=== PATIENT | male | born 1990 | race American Indian/Alaskan Native ===

== ENCOUNTER 2020-07-26 19:03 | Emergency (ER) | payer SELFPAY ==
[2020-07-26] MEDS ORDERED: IBUPROFEN 600 MG TAB PO ONE (19:59)
--- NOTE | 2020-07-26 20:12 | XRay Report ---
XR chest routine 2V INDICATION / CLINICAL INFORMATION: SOB, cough, fever COMPARISON: None available. FINDINGS: SUPPORT DEVICES: None. HEART / MEDIASTINUM: No significant abnormality. LUNGS / PLEURA: Volume loss with right lower lung zone linear opacity. Costophrenic sulci are sharp. No pneumothorax. ADDITIONAL FINDINGS: No significant additional findings. IMPRESSION: 1. Atelectasis and/or scarring seen within the right middle lobe. No acute airspace disease is identi fied. Signer Name: Damir Michaud MD Signed: 07/26/2020 8:08 PM Workstation Name: [id number]
[2020-07-26 20:36] VITALS: BP 104/66
== END 2020-07-26 21:00 | disposition left against medical advice (07) ==
LOC: ED 19:03
DX: R05 Cough (principal); Z53.21 Procedure and treatment not carried out due to patient leaving prior to being seen by health care provider
CPT/HCPCS: 71046

== ENCOUNTER 2021-04-01 13:49 | Emergency (ER) | payer SELFPAY ==
--- NOTE | 2021-04-01 14:51 | Event Note ---
ED Screening Note Date of service: 04/01/21 Time: 14:49 ED Screening Note: 30-year-old male patient with history of HIV presents to the emergency department with complaints of progressively worsening left testicular pain/swelling for 3 days. 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 Unsure of last CD4 count. Patient states he has not been on antiretroviral therapy in several months. He has not been sexually active in approximately 8 months. General: Awake, appropriately interactive, no acute distress. Neck: Supple. Full range of motion intact. Cardiovascular: Normal peripheral perfusion. Pulmonary: No respiratory distress. Patient is speaking normally without use of accessory muscles. Skin: No apparent rashes or lesions. Neurological: No facial asymmetry. Speech is clear. Follows commands. Patient is alert and oriented. Musculoskeletal: Moves all four extremities spontaneously with normal range of motion. Psych: Cooperative. Appropriate mood and affect. Labs, urinalysis, and testicular ultrasound ordered. Decision to pursue further diagnostic work-up deferred to additional ED providers following full history and complete physical assessment. I have greeted and performed a focused rapid initial assessment of this patient. A comprehensive ED assessment and evaluation of the patient, analysis of all test results, and completion of the medical decision-making process will be conducted by additional ED providers. This initial assessment/diagnostic orders/clinical plan/treatment(s) is/are subject to change based on patients health status, clinical progression and re-assessment. Further treatment and workup at subsequent clinical provider's discretion. Patient/guardian urged not to elope from the ED as their condition may be serious if not clinically assessed and managed.
[2021-04-01 15:41] LABS: Bilirubin,Urine NEG (Negative); Blood,Urine NEG (Negative); Color,Urine Straw (Yellow); Protein,Urine <15 mg/dL mg/dL (Negative); Urobilinogen,Urine < 2.0 mg/dL (<2.0)
[2021-04-01 16:14] LABS: Basophils % (Auto) 0.3 % (0.0-1.8); Eosinophils % (Auto) 0.6 % (0.0-4.3); Hematocrit 45.6 % (35.5-45.6); Hemoglobin 14.7 gm/dl (11.8-15.2); Lymphocytes # (Auto) 1.4 K/mm3 (1.2-5.4); Mean Corpuscular HGB Conc 32 % (32-34); Mean Corpuscular Volume 87 fl (84-94); Monocytes # (Auto) 0.4 K/mm3 (0.0-0.8); Monocytes % (Auto) 9.4 % (0.0-7.3); Platelet Count 170 K/mm3 (140-440); Red Blood Count 5.25 M/mm3 (3.65-5.03); Red Cell Distribution Width 13.5 % (13.2-15.2)
[2021-04-01 16:33] LABS: Alanine Aminotransferase 14 units/L (7-56); Albumin 3.7 g/dL (3.9-5); BUN/Creatinine Ratio 6; Blood Urea Nitrogen 6 mg/dL (9-20); Calcium 8.9 mg/dL (8.4-10.2); Hemolysis Index 7
--- NOTE | 2021-04-01 17:16 | Emergency Department Report ---
<PATRICK SIEGEL - Last Filed: 04/01/21 19:04> ED Male HPI - General Chief complaint: Urogenital-Male Stated complaint: GROIN PAIN Time Seen by Provider: 04/01/21 17:01 Source: patient Mode of arrival: Ambulatory Limitations: No Limitations - History of Present Illness Initial comments: 30 yr old male with past medical hx HIV but not compliant with antiretrovirals since January 2020 presents to the ER today with complaints of left groin and left testicular pain. 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 He states that he danced all night Tuesday but then when he woke up on Tuesday he started to have mild pain in his left groin. He states he assumed that he may have had pulled something or pinches testicles while dancing on the pole but otherwise that he does not recall any specific injury that happened while she was working Tuesday or dancing on a pole Tuesday. He states that on Tuesday he took a BC powder and the pain had resolved. He states that on Tuesday when he woke up, he noticed the pain had flared up again and this time noticed swelling into his left testicle and then today when he woke up and stretched pain was more significant and radiated down into his left knee with the same swelling into his left testicle. He denies any apparent bruising or erythema to the groin or the testicle. He denies any associated dysuria, hematuria, urinary frequency, or penile discharge. He denies any associate abdominal pain. He denies any bowel changes, nausea vomiting, fever or chills. Patient states that he is unsure of his last CD4 count. He states that he has not been sexually active in about 8 months. Complaint: testicle pain, testicle swelling, groin pain -: Gradual (2 days ago ) Location: left testicle, left inguinal region - Related Data Home Medications Medication Instructions Recorded Confirmed Last Taken No Known Home Medications [No 04/01/21 04/01/21 Unknown Reported Home Medications] Allergies Allergy/AdvReac Type Severity Reaction Status Date / Time acetaminophen Allergy Hives Verified 07/26/20 19:25 [From Darvocet-N 100] propoxyphene Allergy Hives Verified 07/26/20 19:25 [From Darvocet-N 100] tramadol [From Ultram] Allergy Hives Verified 07/26/20 19:25 ED Review of Systems Comment: All other systems reviewed and negative Constitutional: denies: chills, fever Eyes: denies: eye pain, eye discharge, vision change ENT: denies: ear pain, throat pain, dental pain, hearing loss, epistaxis, conges tion Respiratory: denies: cough, orthopnea, shortness of breath, SOB with exertion, SOB at rest, wheezing Cardiovascular: denies: chest pain, palpitations Gastrointestinal: denies: abdominal pain, nausea, vomiting, diarrhea, constipation, hematemesis, hematochezia Genitourinary: testicular pain, other (Left testicular swelling, left groin pain). denies: urgency, dysuria, frequency, hematuria, discharge Musculoskeletal: arthralgia Skin: denies: rash, lesions, change in color, change in hair/nails, pruritus Neurological: denies: headache, weakness, numbness, paresthesias, confusion, abnormal gait, vertigo ED Past Medical Hx - Past Medical History Previous Medical History?: Yes Hx HIV: Yes - Medications Home Medications: Home Medications Medication Instructions Recorded Confirmed Last Taken Type No Known Home Medications [No 04/01/21 04/01/21 Unknown History Reported Home Medications] ED Physical Exam - General Limitations: No Limitations General appearance: alert, in no apparent distress - Head Head exam: Present: atraumatic, normocephalic - Eye Eye exam: Present: normal appearance, PERRL, EOMI Pupils: Present: normal accommodation - Neck Neck exam: Present: normal inspection, full ROM - Respiratory Respiratory exam: Absent: respiratory distress - Cardiovascular Cardiovascular Exam: Present: regular rate - GI/Abdominal GI/Abdominal exam: Present: soft. Absent: distended, guarding, rebound - exam: Present: testicular tenderness (Moderate left testicular tenderness), other (No inguinal hernias noted). Absent: urethral discharge, scrotal swelling, vertical testicular lie, circumcision External exam: Present: normal external exam, swelling (Left testicular swelling). Absent: lesions, lacerations, ecchymosis, bleeding - Expanded Exam Expanded exam: Testicular Tenderness: Left, Testicular Swelling: Left, Cremasteric Reflex Present: Left - Extremities Exam Extremities exam: Present: normal inspection, full ROM. Absent: joint swelling - Expanded Lower Extremity Exam Left Hip exam: Present: normal inspection, full ROM, tenderness (Tenderness palpation to left groin area). Absent: swelling, abrasion, laceration, ecchymosis, deformity, crepidus, dislocation, erythema, external rotation, internal rotation, shortening, pelvic stability Gait: Positive: observed and normal - Neurological Exam Neurological exam: Present: alert, oriented X3, CN II-XII intact, normal gait - Psychiatric Psychiatric exam: Present: normal affect, normal mood - Skin Skin exam: Present: intact ED Medical Decision Making - Lab Data Result diagrams: 04/01/21 15:50 04/01/21 15:50 - Medical Decision Making 1630: Patient nowadays states that he is ready to leave and that he has been here since 1:00 I reviewed patient arrival, he arrived around 1349, just a little over 2 hours prior to my shift and me seeing him. I did review lab results with patient and I also explained to patient reason for getting the testicular ultrasound to rule out testicular torsion or any other acute abnormalities. I did call the software support technician before patient was deciding to leave to find out the status of his ultrasound. She states that before patient was placed in the room, he was in the waiting room and when they went to call out to him to the good ultrasound he did not respond and so they took the next patient. She states that she currently has a patient she will come get Mr. Meadows next. When patient started complaining that he was ready to leave, call software support technician again and she states that he will be about 20 minutes before he can come get him. I again informed Mr. Meadows why we need to get an ultrasound, reviewed the risk of not doing ultrasound but he states that he has been here since 1 and does not want to wait any longer and that he will come back in the morning. Informed him that he will have to sign out AGAINST MEDICAL ADVICE which he agreed to and has signed. See form in chart. [Azalia Brian] Has decided to leave our facility AGAINST MEDICAL ADVICE. I have assessed the patient's ability to make informed decision and it is my opinion at this time that the patient has the medical decision capacity to comprehend information regarding current medical condition and appreciates the impact of the disease or condition and the consequences of various options for treatment including foregoing treatment. The patient possesses the ability to evaluate all treatment options, compared to risk and benefits of each option, communicate choice in a consistent manner over time and is able to make rational choices. I have explained to the patient further testing, treatment and evaluation I would like to perform during the current emergency department visit as well as any possible alternatives that could be accomplished in a timely manner. I have outlined the possible risk of foregoing any or all of these interventions and the patient understands and acknowledges that the decision to leave may result in undesirable consequences such as , permanent disability and/or loss of current lifestyle. Even though leaving AMA is not ideal, I have instructed the patient to follow any discharge instructions given take any medications prescribed and resume care as soon as possible with another provider. Additionally, we clearly stated that the patient is welcome to return at any time to continue at our facility. ED Disposition Clinical Impression: Left groin pain, Testicular swelling, left Disposition: - LEFT AGAINST MED ADVICE Is pt being admited?: No Condition: Undetermined Referrals: PRIMARY CARE, [Primary Care Provider] - 3-5 Days Forms: AMA Form <DASIA FELIX - Last Filed: 04/01/21 23:09> ED Review of Systems ROS: Stated complaint: GROIN PAIN Other details as noted in HPI ED Course Vital Signs 04/01/21 04/01/21 14:20 17:31 Temperature 98.3 F 98.4 F Pulse Rate 72 72 Respiratory 16 16 Rate Blood Pressure 132/72 130/70 [Right] O2 Sat by Pulse 98 99 Oximetry ED Medical Decision Making - Lab Data Result diagrams: 04/01/21 15:50 04/01/21 15:50 Critical care attestation.: If time is entered above; I have spent that time in minutes in the direct care of this critically ill patient, excluding procedure time. ED Disposition Is pt being admited?: No Does the pt Need Aspirin: No
[2021-04-01] MEDS ORDERED: IBUPROFEN 600 MG TAB PO ONE (17:17)
[2021-04-01 17:32] VITALS: BP 130/70
== END 2021-04-01 18:58 | disposition left against medical advice (07) ==
LOC: ED 13:49
DX: N50.89 Other specified disorders of the male genital organs (principal); N50.812 Left testicular pain; R10.32 Left lower quadrant pain; Z79.899 Other long term (current) drug therapy
CPT/HCPCS: 36415; 80053; 81001; 85025; 99283

== ENCOUNTER 2021-07-13 14:48 | Emergency (ER) | payer SELFPAY ==
--- NOTE | 2021-07-13 19:27 | Vascular Lab Report ---
DUPLEX DOPPLER LOWER EXTREMITY VEINS, LEFT INDICATION: left calf pain. TECHNIQUE: Duplex doppler imaging was performed through the veins of the left lower extremity using venous compr ession and other maneuvers. COMPARISON: None available. FINDINGS: Common femoral vein: Negative. Superficial femoral vein: Negative. Popliteal vein: Negative. Calf veins: Negative. Additional findings: None. IMPRESSION: Negative for DVT. Signer Name: Kan Segal MD Signed: 07/13/2021 7:23 PM Workstation Name: [id number]
--- NOTE | 2021-07-13 20:12 | Emergency Department Report ---
ED Extremity Problem HPI - General Chief complaint: Extremity Injury, Lower Stated complaint: LT LEG/FOOT PAIN Time Seen by Provider: 07/13/21 18:17 Source: patient Mode of arrival: Ambulatory Limitations: No Limitations - History of Present Illness Initial comments: pt is a 30-year-old male presents emergency room complaints of left leg pain that began yesterday. He states that felt like a charley horse or like his leg locked off. He has pain from his calf down to his foot. He states at first he felt like his foot was slightly colder. He states he gets occasional tingling in the leg. He denies any fall or injury. He denies any leg swelling or skin changes. Past medical history of HIV and states he has been off his medicines for 9 months and is looking to get back on his medications. Allergy to acetaminophen, propoxyphene, tramadol - Related Data Previous Rx's Medication Instructions Recorded Last Taken Type Naproxen 375 mg PO BID PRN #14 tablet 07/13/21 Unknown Rx methOCARBAMOL [Robaxin TAB] 500 mg PO BID PRN #14 tab 07/13/21 Unknown Rx Allergies Allergy/AdvReac Type Severity Reaction Status Date / Time acetaminophen Allergy Hives Verified 07/26/20 19:25 [From Darvocet-N 100] propoxyphene Allergy Hives Verified 07/26/20 19:25 [From Darvocet-N 100] tramadol [From Ultram] Allergy Hives Verified 07/26/20 19:25 ED Review of Systems ROS: Stated complaint: LT LEG/FOOT PAIN Other details as noted in HPI Comment: All other systems reviewed and negative ED Past Medical Hx - Past Medical History Hx HIV: Yes - Surgical History Past Surgical History?: No - Social History Smoking Status: Current Every Day Smoker Substance Use Type: Marijuana - Medications Home Medications: Home Medications Medication Instructions Recorded Confirmed Last Taken Type Naproxen 375 mg PO BID PRN #14 tablet 07/13/21 Unknown Rx methOCARBAMOL [Robaxin TAB] 500 mg PO BID PRN #14 tab 07/13/21 Unknown Rx ED Physical Exam - General Limitations: No Limitations General appearance: alert, in no apparent distress - Head Head exam: Present: atraumatic, normocephalic - Eye Eye exam: Present: normal appearance - ENT ENT exam: Present: mucous membranes moist - Extremities Exam Extremities exam: Present: other (ttp to the left calf, no edema to the LLE, no bony ttp of the LLE, FROM of the LLE, neurovascularly intact, skin is warm, dry, intact) - Neurological Exam Neurological exam: Present: alert, oriented X3 - Psychiatric Psychiatric exam: Present: normal affect, normal mood - Skin Skin exam: Present: warm, dry, intact ED Course Vital Signs 07/13/21 07/13/21 18:01 20:45 Temperature 98.8 F 98.6 F Pulse Rate 88 88 Respiratory 18 18 Rate Blood Pressure 110/84 Blood Pressure 136/73 [Right] O2 Sat by Pulse 97 97 Oximetry ED Medical Decision Making - Radiology Data Radiology results: report reviewed Ordering Physician: TOO COURTNEY Date of Service: 07/13/21 Procedure(s): VL venous duplex LE LT Accession Number(s): [id number] cc: TOO COURTNEY DUPLEX DOPPLER LOWER EXTREMITY VEINS, LEFT INDICATION: left calf pain. TECHNIQUE: Duplex doppler imaging was performed through the veins of the left lower extremity using venous compression and other maneuvers. COMPARISON: None available. FINDINGS: Common femoral vein: Negative. Superficial femoral vein: Negative. Popliteal vein: Negative. Calf veins: Negative. Additional findings: None. IMPRESSION: Negative for DVT. Signer Name: Kan Segal MD Signed: 07/13/2021 7:23 PM Workstation Name: [id number] Transcribed By: ES Dictated By: Kan Segal MD Electronically Authenticated By: Kan Segal MD Signed Date/Time: 07/13/211922 DD/ 21 TD/TT: - Medical Decision Making pt is a 30-year-old male presents emergency room complaints of left leg pain that began yesterday. He states that felt like a charley horse or like his leg locked off. He has pain from his calf down to his foot. He states at first he felt like his foot was slightly colder. He states he gets occasional tingling in the leg. He denies any fall or injury. He denies any leg swelling or skin changes. Past medical history of HIV and states he has been off his medicines for 9 months and is looking to get back on his medications. Allergy to aceta minophen, propoxyphene, tramadol. Vitals are normal. On exam:ttp to the left calf, no edema to the LLE, no bony ttp of the LLE, FROM of the LLE, neurovascularly intact, skin is warm, dry, intact. No skin changes, no signs of infection. No signs of acute arterial occlusion at this time, patient is neurovascularly intact on exam, skin is warm and dry. Doppler ultrasound IMPRESSION: Negative for DVT. Patient given prescription for medication. Discussed the importance of outpatient follow-up. Discussed the importance with patient getting back on his HIV medications. Advised patient Please take medication as prescribed. May use ice pack, heating pad, rest, epsom salt bath. Follow-up with a primary care doctor. Follow-up with the infectious disease doctor. Return to emergency room immediately for any new or worsening symptoms. Critical care attestation.: If time is entered above; I have spent that time in minutes in the direct care of this critically ill patient, excluding procedure time. ED Disposition Clinical Impression: Left leg pain Disposition: HOME / SELF CARE / HOMELESS Is pt being admited?: No Does the pt Need Aspirin: No Condition: Stable Additional Instructions: Please take medication as prescribed. May use ice pack, heating pad, rest, epsom salt bath. Follow-up with a primary care doctor. Follow-up with the infectious disease doctor. Return to emergency room immediately for any new or worsening symptoms. [facility] in [place], [place] Address: [address] [place] [address] [facility] [place] Address: [address] [place] [address] [facility] Address: [address] [place] [address] [facility] Address: [address] [place] [address] Prescriptions: Naproxen 375 mg PO BID PRN #14 tablet PRN Reason: pain methOCARBAMOL [Robaxin TAB] 500 mg PO BID PRN #14 tab PRN Reason: muscle spasm/pain Referrals: JADEN LUX MD [Staff Physician] - 3-5 Days [facility] [Provider Group] - 3-5 Days AYE PARKER MD [Staff Physician] - 3-5 Days (infectious disease) Time of Disposition: 20:08 Print Language: CROATIAN
[2021-07-13 20:48] VITALS: BP 136/73
== END 2021-07-13 20:48 | disposition home or self-care (01) ==
LOC: ED 14:48
DX: M79.605 Pain in left leg (principal)
CPT/HCPCS: 99283